=== PATIENT | female | born 1995 | race African-American/Black ===

== ENCOUNTER 2016-11-17 19:49 | Emergency (ER) | payer BC ==
[~2016-11-17] VITALS: Ht 157.5 cm; Wt 66.0 kg
[~2016-11-17 19:49] MED LIST: BUTACAP2 PO; SPRI28TA PO
[2016-11-17 19:52] VITALS: BP 127/83; PULSE 85; RESP 14; TEMP 98.8; O2SAT 98
[2016-11-17] MEDS ORDERED: SPRI28TA PO (21:32)
[2016-11-17 21:39] VITALS: BP 136/66; PULSE 95; RESP 18; O2SAT 100
--- NOTE | 2016-11-17 22:05 | PD ---
HPI Chief Complaint: Abdominal Pain Time Seen by Provider: 21:59 Travel History International Travel<30 days: No Contact w/Intl Traveler<30days: No Traveled to known affect area: No History of Present Illness HPI 21 yo female that presents to the ED for evaluation of lower abdominal pain for 2 days. No injury. Possibility of . Denies discharge or urinary issues. No BM issues. No fevers, chills or sweats.No chest pain, SOB. No meds. No medical problems. No drugs or alcohol. Denies any other medical problem. Per patient the pain is achy and is 3 out of 10. States that she recently had unprotected sex with someone and the pain started after this. PFSH Past Medical History Medical History: Denies Significant Hx Immunizations Current: Yes Influenza Vaccination: No ?: Unknown LMP: 3-4 WKS AGO : 0 Past Surgical History Surgical History: No Previous Surgery Social History Alcohol Use: No Tobacco Use: No Substance Use: No Allergies-Medications (Allergen,Severity, Reaction): Coded Allergies: No Known Allergies (Unverified , 11/17/16) Reported Meds & Prescriptions Reported Meds & Active Scripts Active Reported Sprintec 28 (Norgestimate-Ethinyl Estradiol) 0.25-35 mg-Mcg Tab 1 Tab PO DAILY Review of Systems Except as stated in HPI: all other systems reviewed are Neg Physical Exam Narrative GENERAL: SKIN: Warm and dry. HEAD: Atraumatic. Normocephalic. EYES: Pupils equal and round. No scleral icterus. No injection or drainage. ENT: No nasal bleeding or discharge. Mucous membranes pink and moist. NECK: Trachea midline. No JVD. CARDIOVASCULAR: Regular rate and rhythm. RESPIRATORY: No accessory muscle use. Clear to auscultation. Breath sounds equal bilaterally. GASTROINTESTINAL: Abdomen soft, slight tenderness to palpation the lower abdomen , nondistended. Hepatic and splenic margins not palpable. MUSCULOSKELETAL: Extremities without clubbing, cyanosis, or edema. No obvious deformities. Full range of motion of the upper and lower extremities bilaterally. 2+ pulses bilaterally. NEUROLOGICAL: Awake and alert. No obvious cranial nerve deficits. Motor grossly within normal limits. Five out of 5 muscle strength in the arms and legs. Normal speech. PSYCHIATRIC: Appropriate mood and affect; insight and judgment normal. Data Data Last Documented VS Vital Signs Date Time Temp Pulse Resp B/P Pulse Ox O2 Delivery O2 Flow Rate FiO2 11/17/16 21:39 95 18 136/66 100 Room Air 11/17/16 19:52 98.8 Orders Urinalysis - C+S If Indicated (11/17/16 21:29) Iv Access Insert/Monitor (11/17/16 21:29) Ed Urine Pregnancytest Poc (11/17/16 21:29) Complete Blood Count With Diff (11/17/16 21:42) Comprehensive Metabolic Panel (11/17/16 21:42) Lipase (11/17/16 21:42) Ketorolac Inj (Toradol Inj) (11/17/16 22:15) Gc And Chlamydia Pcr (11/17/16 22:37) Wet Prep Profile (11/17/16 22:37) Labs Laboratory Tests Test 11/17/16 22:00 White Blood Count 6.2 TH/MM3 Red Blood Count 4.70 MIL/MM3 Hemoglobin 12.3 GM/DL Hematocrit 37.8 % Mean Corpuscular Volume 80.6 FL Mean Corpuscular Hemoglobin 26.2 PG Mean Corpuscular Hemoglobin 32.6 % Concent Red Cell Distribution Width 13.6 % Platelet Count 338 TH/MM3 Mean Platelet Volume 8.8 FL Neutrophils (%) (Auto) 54.4 % Lymphocytes (%) (Auto) 35.9 % Monocytes (%) (Auto) 7.7 % Eosinophils (%) (Auto) 1.0 % Basophils (%) (Auto) 1.0 % Neutrophils # (Auto) 3.4 TH/MM3 Lymphocytes # (Auto) 2.2 TH/MM3 Monocytes # (Auto) 0.5 TH/MM3 Eosinophils # (Auto) 0.1 TH/MM3 Basophils # (Auto) 0.1 TH/MM3 CBC Comment DIFF FINAL Differential Comment Urine Color LIGHT-YELLOW Urine Turbidity CLEAR Urine pH 6.5 Urine Specific [place] 1.006 Urine Protein NEG mg/dL Urine Glucose (UA) NEG mg/dL Urine Ketones NEG mg/dL Urine Occult Blood NEG Urine Nitrite NEG Urine Bilirubin NEG Urine Urobilinogen LESS THAN 2.0 MG/DL Urine Leukocyte Esterase NEG Urine WBC LESS THAN 1 /hpf Microscopic Urinalysis Comment CULT NOT INDICATED Sodium Level 139 MEQ/L Potassium Level 3.5 MEQ/L Chloride Level 107 MEQ/L Carbon Dioxide Level 25.6 MEQ/L Anion Gap 6 MEQ/L Blood Urea Nitrogen 7 MG/DL Creatinine 1.11 MG/DL Estimat Glomerular Filtration 74 ML/MIN Rate Random Glucose 104 MG/DL Calcium Level 8.4 MG/DL Total Bilirubin 0.2 MG/DL Aspartate Amino Transf 19 U/L (AST/SGOT) Alanine Aminotransferase 22 U/L (ALT/SGPT) Alkaline Phosphatase 53 U/L Total Protein 7.9 GM/DL Albumin 3.7 GM/DL Lipase 189 U/L MDM Medical Decision Making Medical Screen Exam Complete: Yes Emergency Medical Condition: Yes Medical Record Reviewed: Yes Interpretation(s) CBC & BMP Diagram 11/17/16 22:00 LFTs and lipase WNL UA negative Differential Diagnosis Lower abdominal pain versus pelvic pain versus UTI versus cystitis versus vaginitis versus appendicitis Narrative Course 21-year-old female that presents to the ED for evaluation of lower abdominal pain. Patient was properly examined and was found to have signs and symptoms consistent appears with upper abdominal pain. Unclear etiology this time I do recommend pelvic exam as well as labs. Patient requests that we stop the pelvic exam until we get the labs. Labs were essentially negative. Do recommend patient that she gets a pelvic exam to get better evaluation of the pain. She is agreeable with doing the pelvic exam now. Pelvic exam did reveal whitish smelly discharge but no sign of cervical tenderness. No adnexal tenderness. Patient does have irritation in the vagina with redness of the vaginal wall. No obvious bleeding or deformity noted. Wet prep and GC and chlamydia were sent. Case was signed out to my attending pending results of this. Gustavo March Nov 17, 2016 22:05
[2016-11-17] MEDS ORDERED: KETOROLAC TROMETHAMINE 30 MG/ML (IVP) VIAL IV PUSH ONE (22:15)
[2016-11-17 22:19] LABS: AUTOMATED NEUTROPHIL # 3.4 TH/MM3 (1.8-7.7); BASOPHIL # 0.1 TH/MM3 (0-0.2); BLOOD, URINE NEG (NEG); EOSINOPHIL # 0.1 TH/MM3 (0-0.4); GLUCOSE,URINE NEG (NEG); HEMATOCRIT 37.8 % (35.0-46.0); KETONE, URINE NEG (NEG); LYMPH % 35.9 % (9.0-44.0); LYMPHOCYTE # 2.2 TH/MM3 (1.0-4.8); MEAN CELL VOLUME 80.6 FL (80.0-100.0); MEAN CORPUSCULAR HEMOGLOBIN 26.2 PG (27.0-34.0); MEAN CORPUSCULAR HGB CONC 32.6 % (32.0-36.0); MONO % 7.7 % (0.0-8.0); NEUT % 54.4 % (16.0-70.0); NITRITE,URINE NEG (NEG); PH, URINE 6.5 (5.0-8.5); PLATELET COUNT 338 TH/MM3 (150-450); RED CELL DISTRIBUTION WIDTH 13.6 % (11.6-17.2); URINE COLOR LIGHT-YELLOW (YELLW/STRAW); WHITE BLOOD COUNT 6.2 TH/MM3 (4.0-11.0)
[2016-11-17 22:23] LABS: HEMO FLAGS DIFF FINAL
[2016-11-17 22:26] LABS: COMMENT (UR) CULT NOT INDICATED; CULTURE IF INDICATED CULT NOT INDICATED
[2016-11-17 22:36] LABS: ANION GAP 6 MEQ/L (5-15); AST (GOT) 19 U/L (15-37); BICARBONATE 25.6 MEQ/L (21.0-32.0); BLOOD UREA NITROGEN 7 MG/DL (7-18); CHLORIDE 107 MEQ/L (98-107); GLOMERULAR FILTRATION RATE 74 ML/MIN (>89); POTASSIUM 3.5 MEQ/L (3.5-5.1); SODIUM (NA) 139 MEQ/L (136-145)
[2016-11-17 22:40] LABS: ALKALINE PHOSPHATASE 53 U/L (45-117); ALT (GPT) 22 U/L (10-53); TOTAL BILIRUBIN ADULT 0.2 MG/DL (0.2-1.0)
[2016-11-17] MEDS ORDERED: METR-1 PO (23:58)
--- NOTE | 2016-11-17 23:58 | PD ---
Data Data Last Documented VS Vital Signs Date Time Temp Pulse Resp B/P Pulse Ox O2 Delivery O2 Flow Rate FiO2 11/17/16 21:39 95 18 136/66 100 Room Air 11/17/16 19:52 98.8 Orders Urinalysis - C+S If Indicated (11/17/16 21:29) Iv Access Insert/Monitor (11/17/16 21:29) Ed Urine Pregnancytest Poc (11/17/16 21:29) Complete Blood Count With Diff (11/17/16 21:42) Comprehensive Metabolic Panel (11/17/16 21:42) Lipase (11/17/16 21:42) Ketorolac Inj (Toradol Inj) (11/17/16 22:15) Gc And Chlamydia Pcr (11/17/16 22:37) Wet Prep Profile (11/17/16 22:37) Labs Laboratory Tests Test 11/17/16 11/17/16 22:00 23:00 White Blood Count 6.2 TH/MM3 Red Blood Count 4.70 MIL/MM3 Hemoglobin 12.3 GM/DL Hematocrit 37.8 % Mean Corpuscular Volume 80.6 FL Mean Corpuscular Hemoglobin 26.2 PG Mean Corpuscular Hemoglobin 32.6 % Concent Red Cell Distribution Width 13.6 % Platelet Count 338 TH/MM3 Mean Platelet Volume 8.8 FL Neutrophils (%) (Auto) 54.4 % Lymphocytes (%) (Auto) 35.9 % Monocytes (%) (Auto) 7.7 % Eosinophils (%) (Auto) 1.0 % Basophils (%) (Auto) 1.0 % Neutrophils # (Auto) 3.4 TH/MM3 Lymphocytes # (Auto) 2.2 TH/MM3 Monocytes # (Auto) 0.5 TH/MM3 Eosinophils # (Auto) 0.1 TH/MM3 Basophils # (Auto) 0.1 TH/MM3 CBC Comment DIFF FINAL Differential Comment Urine Color LIGHT-YELLOW Urine Turbidity CLEAR Urine pH 6.5 Urine Specific [place] 1.006 Urine Protein NEG mg/dL Urine Glucose (UA) NEG mg/dL Urine Ketones NEG mg/dL Urine Occult Blood NEG Urine Nitrite NEG Urine Bilirubin NEG Urine Urobilinogen LESS THAN 2.0 MG/DL Urine Leukocyte Esterase NEG Urine WBC LESS THAN 1 /hpf Microscopic Urinalysis Comment CULT NOT INDICATED Sodium Level 139 MEQ/L Potassium Level 3.5 MEQ/L Chloride Level 107 MEQ/L Carbon Dioxide Level 25.6 MEQ/L Anion Gap 6 MEQ/L Blood Urea Nitrogen 7 MG/DL Creatinine 1.11 MG/DL Estimat Glomerular Filtration 74 ML/MIN Rate Random Glucose 104 MG/DL Calcium Level 8.4 MG/DL Total Bilirubin 0.2 MG/DL Aspartate Amino Transf 19 U/L (AST/SGOT) Alanine Aminotransferase 22 U/L (ALT/SGPT) Alkaline Phosphatase 53 U/L Total Protein 7.9 GM/DL Albumin 3.7 GM/DL Lipase 189 U/L Clue Cells (Wet Prep) PRESENT Vaginal Trichomonas (Wet Prep) NONE SEEN Vaginal Yeast (Wet Prep) NONE SEEN MDM Supervised Visit with MARICRUZ: Yes Narrative Course The history, exam, and medical decision-making in the associated mid-level provider note were completed with my assistance. I reviewed and agree with the findings presented. I attest that I had a [id number] encounter with the patient on the same day, and personally performed and documented my assessment and findings in the medical record. *My assessment and Findings: 21 year-old woman with lower abdominal discomfort and vaginal discharge. Recurrent similar symptoms. Wet prep positive for clue cells and the clinical history suggestive of BV. Possible cervicitis. GC chlamydia pending. Recommend treatment for BV and follow-up of GC chlamydia cultures. Diagnosis Primary Impression: Bacterial vaginosis Additional Instruction: Take Flagyl as prescribed. Follow-up with a knot tying operator in the next 5-7 days. Return to the emergency department for any new or worsening symptoms. Med/Other Pt SpecificInfo: Prescription(s) given Scripts Metronidazole (Flagyl)500 Mg Osp170 Mg PO BID 7 Days Ref 0 Prov:Simone Linares MD 11/17/16 Disposition: 01 DISCHARGE HOME Condition: Stable Simone Linares MD Nov 17, 2016 23:58
[2016-11-18 00:45] LABS: CHLAMYDIA PCR NOT DETECTED (NOT DETECT); NEISSERIA PCR NOT DETECTED (NOT DETECT)
== END 2016-11-18 00:15 | disposition home or self-care (01) ==
LOC: NEPE 19:49
DX: N76.0 Acute vaginitis (principal); N89.8 Other specified noninflammatory disorders of vagina
CPT/HCPCS: 80053; 81001; 83690; 84703; 85025; 87210; 87491; 87591; 96374; 99284; J1885